=== PATIENT | female | born 1995 | race Caucasian/White ===

== ENCOUNTER 2021-03-25 11:04 | Emergency (ER) | payer OTHER ==
[~2021-03-25] VITALS: Ht 177.8 cm; Wt 117.9 kg
[2021-03-25 11:11] VITALS: BP 129/75
[2021-03-25] MEDS ORDERED: BACTRIM DS TAB1 EACH PO (11:42)
== END 2021-03-25 11:48 | disposition home or self-care (01) ==
LOC: ER 11:04
DX: B35.1 Tinea unguium (principal); L03.012 Cellulitis of left finger